=== PATIENT | male | born 1950 | race Caucasian/White ===

== ENCOUNTER → 2020-05-26 10:01 | Outpatient (BNVA) | payer OTHER, SELFPAY | PROVIDERS: PCP Internal Medicine; Referring Provider Internal Medicine; Visit Provider Urology | DX: Z76.89 Persons encountering health services in other specified circumstances (principal) ==

== ENCOUNTER → 2020-08-25 10:31 | Outpatient (BNVA) | payer OTHER, SELFPAY | PROVIDERS: PCP Internal Medicine; Visit Provider Urology ==

== ENCOUNTER → 2021-03-01 10:32 | Outpatient (BNVA) | payer OTHER, SELFPAY | PROVIDERS: PCP Internal Medicine; Visit Provider Urology ==

== ENCOUNTER → 2021-09-28 14:33 | Outpatient (BNVA) | payer OTHER, SELFPAY | PROVIDERS: PCP Internal Medicine; Visit Provider Urology | DX: Z13.89 Encounter for screening for other disorder (principal) ==

== ENCOUNTER → 2022-06-06 11:48 | Outpatient (BNVA) | payer OTHER, SELFPAY | PROVIDERS: PCP Internal Medicine; Visit Provider Urology | DX: N40.1 Benign prostatic hyperplasia with lower urinary tract symptoms (principal) ==

== ENCOUNTER 2023-03-21 09:38 | Outpatient (AMB) | payer OTHER, SELFPAY ==
--- NOTE | 2023-03-21 09:42 | A.OFFVIS_ITS ---
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 Wilkinson. He is being follow-up on today via telehealth for his elevated PSA and erectile dysfunction. In discussion with the patient today reports to be doing and feeling well. Recent PSA results reviewed with the patient today. PSA 12/08--2.1. When asked patient reports compliance with finasteride Sunday and Sunday. He denies any bothersome urinary issues or concerns at this time. He does report having infrequent episodes of urinary frequency and urgency however does not find this bothersome at this time. When asked he reports sudden a fill to be working well as needed p.r.n. for sexual activity. He otherwise offers no other issues or concerns at this time. Elevated PSA He presents for - further evaluation of elevated PSA, Current management is- finasteride Sunday, Sunday, Sunday Laboratory investigations include - a total PSA evaluation - 03/07 PSA 5.2 F 12% - 08/08 4.9, 02/05 4.1, 10/07 2.8, 06/08 2. 3, 12/08 2.1 Imaging investigations include - none Individualized Prostate Cancer Risk Calculator - borderline 5-10% risk Symptoms include - 06/06 minimal symptoms, mild weakness, occasional Overall symptoms are mild Associated conditions diabetes No dyslipidemia No dysuria No erectile dysfunction he has hematuria No hypertension No prostatitis No renal insufficiency No urinary retention No urinary tract infections No Therapeutic plan will be - repeat PSA 6m Erectile dysfunction Unable to obtain and maintain erection Good response to PRN sildenafil Review of Systems Const All systems reviewed & are unremarkable except as noted in HPI and below Physical Exam Const General: cooperative Orientation/consciousness: patient oriented x3 Resp Effort & Inspection: able to speak in complete sentences Neuro General: patient oriented x3 Psych Attitude: cooperative Thought process: Normal thought process present Thought content: Normal thought content present Insight: Good insight present (Psych) Judgement: Good judgement present (Psych) Assessment & Plan Assessment & Plan (1) BPH w urinary obs/LUTS: Code(s): N40.1 - Benign prostatic hyperplasia with lower urinary tract symptoms; N13.8 - Other obstructive and reflux uropathy (2) Elevated PSA: Code(s): R97.20 - Elevated prostate specific antigen [PSA] Plan Discussed recent PSA results with the patient today; as noted above. Patient denies any bothersome urinary issues or concerns at this time. Continue finasteride Sunday as discussed and prescribed. Refills provided. Will obtain PSA in 6 months. Follow-up in 6 months with lab to be completed prior; or sooner with any issues, concerns, and or questions. Orders: Orders Prostate Specific Antigen 6 Months N13.8 - Other obstructive and reflux uropathy, N40.1 - Benign prostatic hyperplasia with lower urinary tract symptoms, R97.20 - Elevated prostate specific antigen [PSA] Medications: Refilled sildenafil administer 60 minutes before intended activity 100 mg PO DAILY 30 days PRN 30 tabs 1RF sexual activity N52.9 - Male erectile dysfunction, unspecified finasteride 5 mg PO DAILY 90 days 90 tabs 1RF N13.8 - Other obstructive and reflux uropathy, N40.1 - Benign prostatic hyperplasia with lower urinary tract symptoms, R33.9 - Retention of urine, unspecified Patient Instructions: The patient had an opportunity to ask questions regarding the treatment plan. All questions were answered. Physical exam, labs, and imaging were discussed and reviewed in detail. As well as risks, benefits, and discussion of treatment ch oices. No major barriers to understanding were identified. The patient expressed understanding and agreement with the above treatment plan. The patient was made aware they should contact our office by phone for worsening of their current condition, the appearance of new symptoms, or with any questions or concerns. Compliance is encouraged with any medications and follow up testing that is ordered. It is a privilege to be allowed the opportunity to participate in? your urological care.? Again, if you have any questions or concerns If you have any questions or concerns please do not hesitate to contact me. The office is [phone]. This note is constructed using voice recognition software. While every effort has been made to ensure accuracy production scheduler errors may have been included. Yours sincerely, CASSANDRA Reynolds- Telehealth Telehealth Location of provider rendering services: practice address Location of patient: address on file Patient Identification confirmed using: Name, : Yes Telehealth method: voice only Patient verbally consented to treatment: Yes Patient verbally consented to billing insurance company: Yes Patient informed of any privacy concerns related to visit: Yes Minutes spent on Phone/Video with Pt.: 15 Coding Level of Care Code Tele Est Pt Level 3 (21969) Diagnoses BPH w urinary obs/LUTS N40.1; N13.8 Elevated PSA R97.20 Time Spent (min) 15
== END 2023-03-21 10:45 | disposition home or self-care (01) ==
LOC: HO.HUSH 09:38
PROVIDERS: PCP Internal Medicine; Visit Provider Nurse Practitioner Family
DX: N40.1 Benign prostatic hyperplasia with lower urinary tract symptoms (principal); N13.8 Other obstructive and reflux uropathy; R97.20 Elevated prostate specific antigen [PSA]
CPT/HCPCS: 99442

== ENCOUNTER → 2023-03-21 09:38 | Outpatient (BNVA) | payer OTHER, SELFPAY | PROVIDERS: PCP Internal Medicine; Visit Provider Nurse Practitioner Family ==

== ENCOUNTER 2023-09-17 17:10 | Outpatient (REF) | payer OTHER, SELFPAY | END 2023-09-17 17:11 | disposition home or self-care (01) | LOC: HO.LAB 17:10 | PROVIDERS: PCP Internal Medicine; Visit Provider Urology | DX: Z13.89 Encounter for screening for other disorder (principal) ==

== ENCOUNTER 2023-09-17 17:16 | Outpatient (REF) | payer OTHER, SELFPAY ==
[2023-09-17 18:31] LABS: Prostate Specific Antigen 2.81 ng/mL (<0.05-4.0)
== END 2023-09-17 17:17 | disposition home or self-care (01) ==
LOC: HO.LNP 17:16
PROVIDERS: Visit Provider Urology
DX: Z12.5 Encounter for screening for malignant neoplasm of prostate (principal); N40.1 Benign prostatic hyperplasia with lower urinary tract symptoms; N13.8 Other obstructive and reflux uropathy; R97.20 Elevated prostate specific antigen [PSA]
CPT/HCPCS: 84153

== ENCOUNTER 2023-09-21 14:59 | Outpatient (AMB) | payer OTHER, SELFPAY ==
--- NOTE | 2023-09-21 15:01 | A.OFFVIS_ITS ---
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 He is a patient of Dr. Wilkinson. He is seen for the following urologic conditions - lower urinary tract symptoms - erectile dysfunction Telemedicine Evaluation 15 min Consultation [employer] Video attempted Doing well Continue with finasteride Sunday, Sunday, Sunday Does complain about some degree of difficulty with foreskin retraction. Suggested intermittent betamethasone. Prescription provided Six-month follow-up PSA Still working at [employer]. Tells me groceries are $200 dollars. Elevated PSA He presents for - further evaluation of elevated PSA, Current management is - finasteride Sunday, Sunday, Sunday Laboratory investigations include - a total PSA evaluation - 03/07 PSA 5.2 F 12%, 08/08 4.9, 02/05 4.1 , 10/07 2.8, 06/08 2.3, 12/08 2.1, 10/09 2.8 Imaging investigations include - none Individualized Prostate Cancer Risk Calculator - borderline 5-10% risk Symptoms include - 06/06 minimal symptoms, mild weakness, occasional Overall symptoms are mild Therapeutic plan will be - repeat PSA 6m Erectile dysfunction - background diabetes Unable to obtain and maintain erection Good response to PRN sildenafil Review of Systems Const All systems reviewed & are unremarkable except as noted in HPI and below Reports no additional complaints Resp Reports no additional complaints GI Reports no additional complaints Reports as per HPI Musc Reports no additional complaints Physical Exam Telemedicine evaluation Appropriate responses Regular breathing rate and rhythm HEENT Head: Yes normal to inspection Ears: hearing grossly normal bilaterally Eyes General: appearance normal, both eyes and all related structures Neck Neck: Yes normal visual inspection Chest Chest palpation & inspection: normal inspection of the chest Resp Effort & Inspection: normal respiratory effort and able to speak in complete sentences Assessment & Plan Assessment & Plan (1) BPH w urinary obs/LUTS: Code(s): N40.1 - Benign prostatic hyperplasia with lower urinary tract symptoms; N13.8 - Other obstructive and reflux uropathy (2) Erectile dysfunction: Code(s): N52.9 - Male erectile dysfunction, unspecified (3) Balanitis: Code(s): N48.1 - Balanitis Plan Six-month follow-up office PSA Orders: Orders Prostate Specific Antigen 09/17/23 N13.8 - Other obstructive and reflux uropathy, N40.1 - Benign prostatic hyperplasia with lower urinary tract symptoms, R97.20 - Elevated prostate specific antigen [PSA] Medications: New hydrocortisone 0.5% apply thin coat twice a day for 7-10 days 1 appl topical BID PRN 56 grams 0RF skin irritation N48.1 - Balanitis Refilled finasteride 5 mg PO DAILY 90 days 90 tabs 1RF N13.8 - Other obstructive and reflux uropathy, N40.1 - Benign prostatic hyperplasia with lower urinary tract symptoms, R33.9 - Retention of urine, unspecified sildenafil administer 60 minutes before intended activity 100 mg PO DAILY 30 days PRN 30 tabs 1RF sexual activity N52.9 - Male erectile dysfunction, unspecified Patient Instructions: Imaging studies, laboratory and physical exam results were discussed and reviewed in detail. No major barriers to patient understanding were identified. An opportunity to ask questions regarding the treatment plan was provided. All questions were answered. The patient expressed understanding and agreement with the above treatment plan. The patient is aware they should contact our office by phone for worsening of their current condition or the appearance of new urologic symptoms. Compliance is encouraged with any medications and followup testing that is ordered. It is a privilege to participate in the urologic care of your patient. If you have any questions or concerns regarding treatment for the above conditions, or other urologic issues, please do not hesitate to contact me. The office telephone contact is [phone]. This note is constructed using voice recognition software. While every effort has been made to ensure accuracy back sewer errors may have been included. Yours sincerely, Dr Valeriy Wilkins MD, [facility] - Urology Providers of Expert, Compassionate Care for the Genitourinary System Telehealth Telehealth Location of provider rendering services: practice address Location of patient: address on file Patient Identification confirmed using: Name, : Yes Telehealth method: video Patient verbally consented to treatment: Yes Patient verbally consented to billing insurance company: Yes Patient informed of any privacy concerns related to visit: Yes Minutes spent on Phone/Video with Pt.: 15 Coding Level of Care Code Est Pt Level 4 (52472) Diagnoses BPH w urinary obs/LUTS N40.1; N13.8 Erectile dysfunction N52.9 Balanitis N48.1
== END 2023-09-21 15:24 | disposition home or self-care (01) ==
LOC: HO.HUSH 14:59
PROVIDERS: PCP Internal Medicine; Visit Provider Urology
DX: N40.1 Benign prostatic hyperplasia with lower urinary tract symptoms (principal); N13.8 Other obstructive and reflux uropathy; N52.9 Male erectile dysfunction, unspecified; N48.1 Balanitis
CPT/HCPCS: 99214

== ENCOUNTER → 2023-09-21 14:59 | Outpatient (BNVA) | payer OTHER, SELFPAY | PROVIDERS: PCP Internal Medicine; Visit Provider Urology ==

== ENCOUNTER 2024-03-20 16:01 | Outpatient (REF) | payer OTHER, SELFPAY ==
[2024-03-20 17:07] LABS: Prostate Specific Antigen 2.15 ng/mL (<0.05-4.0)
== END 2024-03-20 16:02 | disposition home or self-care (01) ==
LOC: HO.LAB 16:01
PROVIDERS: PCP Internal Medicine; Visit Provider Urology
DX: R97.20 Elevated prostate specific antigen [PSA] (principal); Z12.5 Encounter for screening for malignant neoplasm of prostate
CPT/HCPCS: 36415; 84153

== ENCOUNTER 2024-03-21 15:27 | Outpatient (AMB) | payer OTHER, SELFPAY ==
--- NOTE | 2024-03-21 15:28 | MHC.OFFVIS ---
Intake Visit Reasons: 6m/PSA(set) Intake Note: Patient is Present for Telephone Follow Up PSA Urology Med: Finasteride,Sildenafil Antibiotic Allergy: None Blood Thinner: None Recent PSA: 03/20/2024 2.15 Pulp Machine Operator Required: No Allergies No Known Allergies Allergy (Verified 03/21/24 15:28) HPI Comments Details: Jm is a pleasant male. He is a patient of Dr. Wilkinson. He is seen for the following urologic conditions - lower urinary tract symptoms - erectile dysfunction Telemedicine Evaluation 15 min Consultation [employer] Video attempted Doing well Continue with finasteride Sunday, Sunday, Sunday Does complain about some degree of difficulty with foreskin retraction. Suggested intermittent betamethasone. 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 Tells me groceries are $200 dollars. Elevated PSA He presents for - further evaluation of elevated PSA, Current management is - finasteride Sunday, Sunday, Sunday Laboratory investigations include - a total PSA evaluation - 03/07 PSA 5.2 F 12%, 08/08 4.9, 02/05 4.1, 10/07 2.8, 06/08 2.3, 12/08 2.1, 10/09 2.8, 04/10 2.2 Imaging investigations include - none Individualized Prostate Cancer Risk Calculator - borderline 5-10% risk Symptoms include - 06/06 minimal symptoms, mild weakness, occasional Overall symptoms are mild Therapeutic plan will be - repeat PSA 6m Erectile dysfunction - background diabetes Unable to obtain and maintain erection Good response to PRN sildenafil Review of Systems Const All systems reviewed & are unremarkable except as noted in HPI and below Reports no additional complaints Resp Reports no additional complaints GI Reports no additional complaints Reports as per HPI Musc Reports no additional complaints Physical Exam Telemedicine evaluation Appropriate responses Regular breathing rate and rhythm HEENT Head: Yes normal to inspection Ears: hearing grossly normal bilaterally Eyes General: appearance normal, both eyes and all related structures Neck Neck: Yes normal visual inspection Chest Chest palpation & inspection: normal inspection of the chest Resp Effort & Inspection: normal respiratory effort and able to speak in complete sentences Telehealth Telehealth Location of provider rendering services: practice address Location of patient: address on file Patient Identification confirmed using: Name, : Yes Telehealth method: video Patient verbally consented to treatment: Yes Patient verbally consented to billing insurance company: Yes Patient informed of any privacy concerns related to visit: Yes Minutes spent on Phone/Video with Pt.: 15 Assessment & Plan Assessment & Plan (1) Elevated PSA: Code(s): R97.20 - Elevated prostate specific antigen [PSA] Category: Medical (2) Erectile dysfunction: Code(s): N52.9 - Male erectile dysfunction, unspecified Category: Medical (3) BPH w urinary obs/LUTS: Code(s): N40.1 - Benign prostatic hyperplasia with lower urinary tract symptoms; N13.8 - Other obstructive and reflux uropathy Category: Medical Plan 12 month follow-up PSA Orders: Orders Prostate Specific Antigen 03/20/24 R97.20 - Elevated prostate specific antigen [PSA] Prostate Specific Antigen 364 Days R97.20 - Elevated prostate specific antigen [PSA] Medications: Refilled finasteride 5 mg PO DAILY 90 tabs 3RF 90 days N40.1 - Benign prostatic hyperplasia with lower urinary tract symptoms, R33.9 - Retention of urine, unspecified Patient Instructions: Imaging studies, laboratory and physical exam results were discussed and reviewed in detail. No major barriers to patient understanding were identified. An opportunity to ask questions regarding the treatment plan was provided. All questions were answered. The patient expressed understanding and agreement with the above treatment plan. The patient is aware they should contact our office by phone for worsening of their current condition or the appearance of new urologic symptoms. Compliance is encouraged with any medications and followup testing that is ordered. It is a privilege to participate in the urologic care of your patient. If you have any questions or concerns regarding treatment for the above conditions, or other urologic issues, please do not hesitate to contact me. The office telephone contact is [phone]. This note is constructed using voice recognition software. While every effort has been made to ensure accuracy civil engineer land development errors may have been included. Yours sincerely, Dr Valeriy Wilkins MD, [facility] - Urology Providers of Expert, Compassionate Care for the Genitourinary System Coding Level of Care Code Tele Est Pt Level 3 (13821) Diagnoses Elevated PSA R97.20 Erectile dysfunction N52.9 BPH w urinary obs/LUTS N40.1; N13.8
== END 2024-03-21 15:48 | disposition home or self-care (01) ==
LOC: HO.HUSH 15:27
PROVIDERS: PCP Internal Medicine; Visit Provider Urology
DX: R97.20 Elevated prostate specific antigen [PSA] (principal); N52.9 Male erectile dysfunction, unspecified; N40.1 Benign prostatic hyperplasia with lower urinary tract symptoms; N13.8 Other obstructive and reflux uropathy
CPT/HCPCS: 99213

== ENCOUNTER → 2024-03-21 15:27 | Outpatient (BNVA) | payer OTHER, SELFPAY | PROVIDERS: PCP Internal Medicine; Visit Provider Urology ==

== ENCOUNTER 2025-03-19 16:38 | Outpatient (REF) | payer OTHER, SELFPAY ==
--- OUTSIDE RECORDS SUMMARY | 2025-03-19 17:06 | XMS_ITS | Continuity of Care Document ---
Author Organization [facility] [address] [place] [address] Phone [phone] Care Team Providers Care Earth Sciences Professor Name Role Phone Jason Wilkinson M.D. Care Team Information Recei michelle [phone] Problems Active Problems Provider Date Hyperlipidemia Abdiel Fontana M.D. Onset: 0 12/28/2023 Essential hypertension Abdiel Fontana M.D. O nset: 12/28/2023 Type 2 diabetes mellitus Abdiel Fontana M.D. Onset: 12/28/2023 Obstructive sleep apnea syndrome Abdiel angel M.D. Onset: 12/28/2023 Multinodular goiter Abdiel Fontana M.D. Onse t: 12/28/2023 Social History Type Date Description Comments Sex Male Sex Unknown ETOH Use Occasionally consumes alcoho l Tobacco Use Start: Unknown End: Unknown Patient is a former smoker Allergies and adverse reactions Description No Known Drug Allergies Medications Active Medications SIG Qnty Indications Order ing Provider Date [id number] Tablets Take 1 Tablet By Mouth Every Day Jason Wilkinson M.D. Atorvastatin Nbqmiho93vj Tablets Take 1 Tablet By Mouth Every Day Jason Wilkinson M.D. Hkvhaqjgzsd9bu Tablets Take 1 Tablet By Mouth Every Day Unknown Mounjaro2.5mg/0.5ML Solution Pen-Inject inject 2.5mg subcutaneously once a week as directed for 4 weeks 2ml Jason Wilkinson M.D. Vital Signs Date Vital Result Comment 12/28/2023 1:55pm BP Systolic 160 mmHg BP Diastolic 86 mmHg Heart Rate 76 /min Height 73 inches 6'1 Weight 278.00 lb BMI (Body Mass Index) 36.7 kg/m2 Medical Devices Description No Information Available Encounters Type Date Location Provider Dx Diagnosis Office Visit 12/28/2023 1:45p Main Office Abdiel Fontana M.D. E04.2 Nontoxic multinodular goiter Assessments Date Code Description Provider 12/28/2023 E04.2 Multinodular goiter Abdiel Aguilera M.D. Plan of Treatment No Information Available Functional Status Description No Information Available Mental Status Description No Information Available Referrals Description No Information Available
[2025-03-19 18:08] LABS: Prostate Specific Antigen 2.16 ng/mL (<0.05-4.0)
== END 2025-03-19 16:39 | disposition home or self-care (01) ==
LOC: HO.LAB 16:38
PROVIDERS: PCP Internal Medicine; Visit Provider Urology
DX: R97.20 Elevated prostate specific antigen [PSA] (principal); Z12.5 Encounter for screening for malignant neoplasm of prostate
CPT/HCPCS: 36415; 84153

== ENCOUNTER 2025-03-24 14:20 | Outpatient (AMB) | payer OTHER, SELFPAY ==
--- NOTE | 2025-03-24 14:20 | A.OFFVIS_ITS ---
Intake Visit Reasons: 1y/PSA Intake Note: Patient is Present for 1 YR Follow Up Telehealth Urology Med: Finasteride,Sildenafil Antibiotic Allergy: None Blood Thinner: None Recent PSA: 03/19/2025 2.16 Resort Manager Required: No Accompanied by: Self / Same As Patient Allergies No Known Allergies Allergy (Verified 03/24/25 14:21) HPI Comments Details: Jm is a pleasant male. He is a patient of Dr. Wilkinson. He is seen for the following urologic conditions - lower urinary tract symptoms - erectile dysfunction Telemedicine Evaluation 15 min Consultation [employer] Video attempted Yearly followup PSA remains stable Continue medications Doing well Continue with finasteride Sunday, Sunday, Sunday Does complain about some degree of difficulty with foreskin retraction. Suggested intermittent betamethasone. Prescription provide. 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 Elevated PSA He presents for - further evaluation of elevated PSA, Current management is - finasteride Sunday, Sunday, Sunday Laboratory investigations include - a total PSA evaluation - 03/07 PSA 5.2 F 12%, 08/08 4.9, 02/05 4.1, 10/07 2.8, 06/08 2.3, 12/08 2.1, 10/09 2.8, 04/10 2.2, 04/11 2.2 Imaging investigations include - none Individualized Prostate Cancer Risk Calculator - borderline 5-10% risk Symptoms include - 06/06 minimal symptoms, mild weakness, occasional Overall symptoms are mild Therapeutic plan will be - Erectile dysfunction - background diabetes Unable to obtain and maintain erection Good response to PRN sildenafil Review of Systems Const All systems reviewed & are unremarkable except as noted in HPI and below Reports no additional complaints Resp Reports no additional complaints GI Reports no additional complaints Reports as per HPI Musc Reports no additional complaints Physical Exam Telemedicine evaluation Appropriate responses Regular breathing rate and rhythm HEENT Head: Yes normal to inspection Ears: hearing grossly normal bilaterally Eyes General: appearance normal, both eyes and all related structures Neck Neck: Yes normal visual inspection Chest Chest palpation & inspection: normal inspection of the chest Resp Effort & Inspection: normal respiratory effort and able to speak in complete sentences Telehealth Telehealth Telehealth Platform: [employer] Location of provider rendering services: practice address Location of patient: address on file Patient Identification confirmed using: Name, : Yes Telehealth method: video Patient verbally consented to treatment: Yes Patient verbally consented to billing insurance company: Yes Patient informed of any privacy concerns related to visit: Yes Minutes spent on Phone/Video with Pt.: 15 Assessment & Plan Assessment & Plan (1) Elevated PSA: Code(s): R97.20 - Elevated prostate specific antigen [PSA] Category: Medical (2) BPH w urinary obs/LUTS: Code(s): N40.1 - Benign prostatic hyperplasia with lower urinary tract symptoms; N13.8 - Other obstructive and reflux uropathy Category: Medical (3) Erectile dysfunction: Code(s): N52.9 - Male erectile dysfunction, unspecified Category: Medical Plan Twelve month follow-up Orders: Orders Prostate Specific Antigen 12 Months R97.20 - Elevated prostate specific antigen [PSA] Medications: Refilled finasteride 5 mg PO DAILY 90 tabs 3RF 90 days N40.1 - Benign prostatic hyperplasia with lower urinary tract symptoms, R33.9 - Retention of urine, unspecified Patient Instructions: This note is constructed using voice recognition software. While every effort has been made to ensure accuracy stoper errors may have been included. Imaging studies, laboratory and physical exam results were discussed and reviewed in detail. No major barriers to patient understanding were identified. An opportunity to ask questions regarding the treatment plan was provided. All questions were answered. The patient expressed understanding and agreement with the above treatment plan. The patient is aware they should contact our office by phone for worsening of their current condition or the appearance of new urologic symptoms. Compliance is encouraged with any medications and followup testing that is ordered. It is a privilege to participate in the urologic care of your patient. If you have any questions or concerns regarding treatment for the above conditions, or other urologic issues, please do not hesitate to contact me. The office telephone contact is [phone]. Sincerely, Dr Valeriy Wilkins MD, [facility] - Urology Compassionate Specialist Care for the Genitourinary System Coding Level of Care Code Tele Est Pt Level 3 (26175) Complex EM visit Add On G2211 Diagnoses Elevated PSA R97.20 BPH w urinary obs/LUTS N40.1; N13.8 Erectile dysfunction N52.9
--- OUTSIDE RECORDS SUMMARY | 2025-03-24 17:41 | XMS_ITS | Continuity of Care Document ---
Author Organization [facility] [address] [place] [address] Phone [phone] Care Team Providers Care Tanker Driver Name Role Phone Jason Wilkinson M.D. Care Team Information Recei michelle [phone] Problems Active Problems Provider Date Hyperlipidemia Abdiel [...] SIG Qnty Indications Order ing Provider Date Aqlqmvcdvi84ml Tablets Take 1 Tablet By Mouth Every Day Jason Wilkinson M.D. Atorvastatin Ermwksp97bv Tablets Take 1 Tablet By Mouth Every Day Jason Wilkinson M.D. Hmukcgdmsac9bx Tablets Take 1 Tablet By Mouth Every [...]
== END 2025-03-24 15:47 | disposition home or self-care (01) ==
LOC: HO.HUSH 14:20
PROVIDERS: PCP Internal Medicine; Visit Provider Urology
DX: R97.20 Elevated prostate specific antigen [PSA] (principal); N40.1 Benign prostatic hyperplasia with lower urinary tract symptoms; N13.8 Other obstructive and reflux uropathy; N52.9 Male erectile dysfunction, unspecified
CPT/HCPCS: 99213